=== PATIENT | female | born 1965 | race Caucasian/White ===

== ENCOUNTER 2019-05-23 13:09 | Emergency (ER) | payer MEDICAID ==
[~2019-05-23] VITALS: Ht 160 cm; Wt 84.0 kg
[2019-05-23 13:29] VITALS: BP 110/62
--- NOTE | 2019-05-23 13:44 | NUR ---
pt seen and treated at triage by Dr Keyes, nonadherent dressing and guaze wrap applied, pt ten well
== END 2019-05-23 13:46 | disposition home or self-care (01) ==
LOC: ER 13:10
DX: Z48.02 Encounter for removal of sutures (principal); Z88.0 Allergy status to penicillin
CPT/HCPCS: 99281

== ENCOUNTER 2019-06-04 09:54 | Emergency (ER) | payer MEDICAID ==
[~2019-06-04] VITALS: Ht 157.5 cm; Wt 84.0 kg
[2019-06-04 09:55] VITALS: BP 156/87
--- NOTE | 2019-06-04 10:39 | NUR ---
Patient with retained suture in left arm antecubital area. Removed with suture removal kit with no suture seen remaining in arm.
[2019-06-05] MEDS ORDERED: CLOP75TA35 PO (16:58)
[2019-06-05] MEDS ORDERED: GABA-532 PO ×2 (16:58→18:03)
[2019-06-05] MEDS ORDERED: ACET325T55 PO (16:58)
[2019-06-05] MEDS ORDERED: OXYB-58 PO (16:58)
[2019-06-05] MEDS ORDERED: RIVA20TA PO ×2 (16:58→18:03)
[2019-06-05] MEDS ORDERED: ALBU8.5H8 INH (16:58)
[2019-06-05] MEDS ORDERED: AMLO5TAB16 PO (16:58)
[2019-06-05] MEDS ORDERED: AMLO5TAB PO (18:03)
[2019-06-05] MEDS ORDERED: OXYB5TAB29 PO (18:03)
[2019-06-05] MEDS ORDERED: ALBU8HFA PO (18:03)
[2019-06-05] MEDS ORDERED: CLOP75TA33 PO (18:03)
== END 2019-06-04 11:43 | disposition home or self-care (01) ==
LOC: ER 09:54
DX: M79.602 Pain in left arm (principal); E78.00 Pure hypercholesterolemia, unspecified; I10 Essential (primary) hypertension; J45.909 Unspecified asthma, uncomplicated; G89.29 Other chronic pain; F32.9 Major depressive disorder, single episode, unspecified; F17.200 Nicotine dependence, unspecified, uncomplicated; F12.90 Cannabis use, unspecified, uncomplicated; Z86.19 Personal history of other infectious and parasitic diseases; Z86.718 Personal history of other venous thrombosis and embolism; Z98.890 Other specified postprocedural states; Z88.0 Allergy status to penicillin; Z79.01 Long term (current) use of anticoagulants; Z79.899 Other long term (current) drug therapy
CPT/HCPCS: 93971; 99284

== ENCOUNTER 2019-06-05 15:54 | Emergency (ER) | payer MEDICAID, OTHER ==
[~2019-06-05] VITALS: Ht 154.9 cm; Wt 83.8 kg
[2019-06-05 16:07] VITALS: BP 132/79
[2019-06-05] MEDS ORDERED: GABA-532 PO ×2 (16:58→18:03)
[2019-06-05] MEDS ORDERED: AMLO5TAB16 PO (16:58)
[2019-06-05] MEDS ORDERED: ACET325T55 PO (16:58)
[2019-06-05] MEDS ORDERED: OXYB-58 PO (16:58)
[2019-06-05] MEDS ORDERED: RIVA20TA PO ×2 (16:58→18:03)
[2019-06-05] MEDS ORDERED: CLOP75TA35 PO (16:58)
[2019-06-05] MEDS ORDERED: ALBU8.5H8 INH (16:58)
[2019-06-05] MEDS ORDERED: rivaroxaban 20mg tablet PO STA (17:49)
[2019-06-05] MEDS ORDERED: amLODIPine 5mg tablet PO ONE (17:50)
[2019-06-05] MEDS ORDERED: ALBU8HFA PO (18:03)
[2019-06-05] MEDS ORDERED: OXYB5TAB29 PO (18:03)
[2019-06-05] MEDS ORDERED: AMLO5TAB PO (18:03)
[2019-06-05] MEDS ORDERED: CLOP75TA33 PO (18:03)
[2019-06-05] MEDS ORDERED: clopidogrel 75mg tablet PO ONE (18:10)
[2019-06-06] MEDS ORDERED: clopidogrel 75mg tablet PO ONE (08:00)
== END 2019-06-05 18:20 | disposition home or self-care (01) ==
LOC: ER 15:54
DX: M79.602 Pain in left arm (principal); E78.00 Pure hypercholesterolemia, unspecified; G89.29 Other chronic pain; F32.9 Major depressive disorder, single episode, unspecified; F12.90 Cannabis use, unspecified, uncomplicated; F11.90 Opioid use, unspecified, uncomplicated; Z86.718 Personal history of other venous thrombosis and embolism; Z98.890 Other specified postprocedural states; Z88.0 Allergy status to penicillin; Z79.899 Other long term (current) drug therapy
CPT/HCPCS: 99284

== ENCOUNTER 2020-10-18 22:50 | Emergency (ER) | payer MEDICAID, OTHER ==
[~2020-10-18] VITALS: Ht 157.5 cm; Wt 85.0 kg
[~2020-10-18 22:50] MED LIST: ACET325T55 PO; ALBU8.5H17 INH; AMLO5TAB PO; AMLO5TAB16 PO; CLOP75TA33 PO; CLOP75TA34 PO; GABA-532 PO; OXYB-58 PO; OXYB5TAB29 PO; RIVA20TA PO
[2020-10-18 23:05] VITALS: BP 177/100
== END 2020-10-18 23:30 | disposition home or self-care (01) ==
LOC: ER 22:51
DX: F10.120 Alcohol abuse with intoxication, uncomplicated (principal); G40.909 Epilepsy, unspecified, not intractable, without status epilepticus; I10 Essential (primary) hypertension; J45.909 Unspecified asthma, uncomplicated; R47.81 Slurred speech; E78.00 Pure hypercholesterolemia, unspecified; G89.29 Other chronic pain; F17.200 Nicotine dependence, unspecified, uncomplicated; F12.90 Cannabis use, unspecified, uncomplicated; F11.90 Opioid use, unspecified, uncomplicated; Z88.0 Allergy status to penicillin; Z86.718 Personal history of other venous thrombosis and embolism; Z79.899 Other long term (current) drug therapy; Y90.9 Presence of alcohol in blood, level not specified
CPT/HCPCS: 99283

== ENCOUNTER 2021-03-22 07:40 | Emergency (ER) | payer MEDICAID ==
[~2021-03-22] VITALS: Ht 167.6 cm; Wt 77.5 kg
[2021-03-22 08:20] LABS: COLOR,URINE RED (Yellow)
[2021-03-22 08:26] LABS: UA COLLECTION TYPE CLN CATCH MIDSTREAM
[2021-03-22 08:27] LABS: CLARITY,URINE BLOODY (Clear); RBC,URINE TNTC /HPF (0-2)
[2021-03-22 08:27] LABS: BASOPHILS # (AUTO) 0.1 X10'3 (0-0.2); BASOPHILS % (AUTO) 0.5 % (0-1); EOSINOPHILS # (AUTO) 0.3 X10'3 (0-0.9); EOSINOPHILS % (AUTO) 2.4 % (0-6); HEMATOCRIT 36.8 % (35.0-45.0); HEMOGLOBIN 12.8 g/dl (12.0-16.0); LYMPHOCYTES # (AUTO) 2.3 X10'3 (1.1-4.8); LYMPHOCYTES % (AUTO) 19.7 % (21-51); MEAN CORPUSCULAR HEMOGLOBIN 31.1 PG (27.0-31.0); MEAN CORPUSCULAR HGB CONC 34.6 g/dL (33.0-36.5); MEAN CORPUSCULAR VOLUME 89.7 FL (78-98); MEAN PLATELET VOLUME 8.6 FL (7.4-10.4); MONOCYTES # (AUTO) 0.8 X10'3 (0-0.9); MONOCYTES % (AUTO) 6.9 % (2-12); NEUTROPHILS % (AUTO) 70.5 % (42-75); PLATELET COUNT 202 X10'3 (140-440); RED BLOOD COUNT 4.11 X10'6 (4.20-5.60); RED CELL DISTRIBUTION WIDTH 15.2 % (11.5-14.5); WHITE BLOOD COUNT 11.4 X10'3 (4.5-11.0)
[2021-03-22 08:29] LABS: BACTERIA,URINE 1+ /HPF (Neg); SQUAMOUS EPITHELIAL CELL,UR FEW /LPF (FEW)
[2021-03-22 08:58] LABS: ALANINE AMINOTRANSFERASE 32 U/L (12-78); ALBUMIN 3.7 G/DL (3.4-5.0); ALBUMIN/GLOBULIN RATIO 0.8 (1.1-1.5); ALKALINE PHOSPHATASE 95 IU/L (46-116); ANION GAP 13 (8-16); ASPARTATE AMINO TRANSFERASE 34 U/L (10-37); BILIRUBIN,TOTAL 0.5 MG/DL (0.1-1.0); BLOOD UREA NITROGEN 23 MG/DL (7-18); CALCIUM 8.9 MG/DL (8.5-10.1); CHLORIDE 107 MMOL/L (99-107); CREATININE 0.82 MG/DL (0.40-0.90); GLUCOSE 148 MG/DL (70-104); LIPASE 113 U/L (73-393); POTASSIUM 4.1 MMOL/L (3.5-5.1); SODIUM 141 MMOL/L (135-145); TOTAL CARBON DIOXIDE 21.4 MMOL/L (24-32); TOTAL PROTEIN 8.4 G/DL (6.4-8.2); eGFR 73 ML/MIN
[2021-03-22 11:15] VITALS: BP 128/80
[2021-03-22] MEDS ORDERED: cephalexin 250mg capsule PO ONE (11:20)
[2021-03-22] MEDS ORDERED: CEPH-585 PO ×2 (12:24→12:44)
--- NOTE | 2021-03-22 12:45 | NUR ---
Pt given and understands d/c instructions. Ambulatory with a slow gait.
== END 2021-03-22 12:45 | disposition home or self-care (01) ==
LOC: ER 07:42
DX: D68.9 Coagulation defect, unspecified (principal); N39.0 Urinary tract infection, site not specified; R10.30 Lower abdominal pain, unspecified; G40.909 Epilepsy, unspecified, not intractable, without status epilepticus; E78.00 Pure hypercholesterolemia, unspecified; I10 Essential (primary) hypertension; J45.909 Unspecified asthma, uncomplicated; F12.90 Cannabis use, unspecified, uncomplicated; F11.90 Opioid use, unspecified, uncomplicated; G89.29 Other chronic pain; Z86.718 Personal history of other venous thrombosis and embolism; Z88.0 Allergy status to penicillin; Z79.2 Long term (current) use of antibiotics; Z79.899 Other long term (current) drug therapy
CPT/HCPCS: 36415; 80053; 81001; 83690; 85025; 85610; 87088; 99283

== ENCOUNTER 2021-05-12 20:04 | Emergency (ER) | payer MEDICAID ==
[~2021-05-12] VITALS: Ht 160 cm; Wt 93.6 kg
[~2021-05-12 20:04] MED LIST changes: +CEPH-585 PO
[2021-05-12 20:55] VITALS: BP 166/99
== END 2021-05-13 01:06 | disposition left against medical advice (07) ==
LOC: ER 20:05
DX: S61.219A Laceration without foreign body of unspecified finger without damage to nail, initial encounter (principal); Z53.21 Procedure and treatment not carried out due to patient leaving prior to being seen by health care provider; X58.XXXA Exposure to other specified factors, initial encounter; Y93.89 Activity, other specified; Y92.89 Other specified places as the place of occurrence of the external cause; Y99.8 Other external cause status

== ENCOUNTER 2022-02-23 05:57 | Emergency (ER) | payer MEDICAID ==
[~2022-02-23] VITALS: Ht 167.6 cm; Wt 90.9 kg
[2022-02-23 07:00] LABS: HEMATOCRIT 39.4 % (35.0-45.0); HEMOGLOBIN 13.3 g/dl (12.0-16.0); MEAN CORPUSCULAR HEMOGLOBIN 31.5 PG (27.0-31.0); MEAN CORPUSCULAR HGB CONC 33.7 g/dL (33.0-36.5); MEAN CORPUSCULAR VOLUME 93.5 FL (78-98); PLATELET COUNT 158 X10'3 (140-440); RED BLOOD COUNT 4.21 X10'6 (4.20-5.60); RED CELL DISTRIBUTION WIDTH 18.3 % (11.5-14.5); WHITE BLOOD COUNT 6.6 X10'3 (4.5-11.0)
[2022-02-23 07:01] LABS: BASOPHILS % (AUTO) 0.8 % (0-1); EOSINOPHILS % (AUTO) 0.1 % (0-6); LYMPHOCYTES # (AUTO) 0.6 X10'3 (1.1-4.8); LYMPHOCYTES % (AUTO) 9.7 % (21-51); MEAN PLATELET VOLUME 8.9 FL (7.4-10.4); MONOCYTES # (AUTO) 0.7 X10'3 (0-0.9); MONOCYTES % (AUTO) 10 % (2-12); NEUTROPHILS # (AUTO) 5.3 X10'3 (1.8-7.7); NEUTROPHILS % (AUTO) 79.4 % (42-75)
[2022-02-23 07:13] LABS: ANION GAP 12 (8-16); BLOOD UREA NITROGEN 15 MG/DL (7-18); BUN/CREATININE RATIO 16.9 (6.6-38.0); CHLORIDE 103 MMOL/L (99-107); CREATININE 0.89 MG/DL (0.40-0.90); GLUCOSE 153 MG/DL (70-104); POTASSIUM 3.3 MMOL/L (3.5-5.1); SODIUM 137 MMOL/L (135-145); TOTAL CARBON DIOXIDE 21.9 MMOL/L (24-32); eGFR 66 ML/MIN
[2022-02-23 07:14] LABS: ALANINE AMINOTRANSFERASE 112 U/L (12-78); ALBUMIN 3.7 G/DL (3.4-5.0); ALBUMIN/GLOBULIN RATIO 0.8 (1.1-1.5); ALKALINE PHOSPHATASE 115 IU/L (46-116); ASPARTATE AMINO TRANSFERASE 146 U/L (10-37); BILIRUBIN,TOTAL 0.5 MG/DL (0.1-1.0); CALCIUM 8.7 MG/DL (8.5-10.1); TOTAL PROTEIN 8.1 G/DL (6.4-8.2)
[2022-02-23] MEDS ORDERED: normal saline 1000ml 1,000 ML IV ONE (11:50)
[2022-02-23] MEDS ORDERED: ketorolac tromethamine 15mg/ml inj. IV ONE (11:50)
[2022-02-23] MEDS ORDERED: iohexol 350MG/ML 100ml bottle IV ONE ×2 (12:10→15:13)
[2022-02-23] MEDS ORDERED: buprenorphine/naloxone 8MG-2MG SUBlingual film SL ONE (12:50)
[2022-02-23] MEDS ORDERED: albuterol 2.5 MG/3 ML nebule NEB ONE (16:15)
[2022-02-23 18:13] VITALS: BP 148/98
== END 2022-02-23 18:33 | disposition home or self-care (01) ==
LOC: ER 05:58
DX: R06.02 Shortness of breath (principal); Z20.822 Contact with and (suspected) exposure to COVID-19; R05.9 Cough, unspecified; M79.10 Myalgia, unspecified site; E78.00 Pure hypercholesterolemia, unspecified; I10 Essential (primary) hypertension; J45.909 Unspecified asthma, uncomplicated; G89.29 Other chronic pain; F31.9 Bipolar disorder, unspecified; F12.10 Cannabis abuse, uncomplicated; Z88.0 Allergy status to penicillin; Z79.899 Other long term (current) drug therapy; Z79.1 Long term (current) use of non-steroidal anti-inflammatories (NSAID)
CPT/HCPCS: 36415; 71045; 71275; 76937; 80053; 83880; 84484; 85025; 87502; 87503; 87635; 93005; 94640; 96361; 96374; 99285; C1751; C9803; J1885; J3490; J7030; Q9967; 94760

== ENCOUNTER 2025-03-04 14:39 | Outpatient (CLI) | payer MEDICAID ==
[2025-03-04 15:36] LABS: CREATININE 0.80 MG/DL (0.40-0.90); TOTAL CARBON DIOXIDE 27.8 MMOL/L (24-32); eGFR 74 ML/MIN
[2025-03-04] MEDS ORDERED: iohexol 300mg/ml 100ml inj. ONE (15:48)
--- NOTE | 2025-03-04 21:37 | RADIOLOGY REPORT ---
COMPUTERIZED TOMOGRAPHY FACE/PARANASAL SINUSES NONCONTRAST REASON FOR EXAM: CHRONIC SINUSITIS COMPARISON: None TECHNIQUE: Thin axial slices of the face/paranasal sinuses were obtained without intravenous contrast. 2D coronal and sagittal reformatted images were provided. Radiation optimization: All CT scans at this facility use at least one of these dose optimization techniques: Automated exposure control mA and/or kV adjustment per patient size (includes targeted exams where dose is matched to clinical indication) or iterative reconstruction. RADIATION DOSE: CTDI: 54 mGy DLP: 1056 mGy-cm FINDINGS: The globes appear intact. There is no abnormal thickening of the extra-ocular muscles. The optic nerves appear symmetric and within normal limits. There are numerous dental caries. There is a periapical lucency about the most posterior left maxillary molar measuring 2.3 x 2.1 cm and causing deformity of the floor of the left maxillary sinus. There is mild mucosal disease along the floor of the left maxillary sinus, likely reactive. There are several additional, smaller periapical lucencies about the remaining maxillary teeth. Bilateral ostiomeatal units are patent. The frontoethmoidal and sphenoethmoidal recesses are patent. There is trace mucosal disease in the posterior left ethmoid air cells. The visualized mastoid air cells are clear. IMPRESSION: Chronic deformity of the floor of the left maxillary sinus secondary to a large periapical lucency about the posterior left maxillary molar that may represent a chronic abscess. There are numerous additional periapical lucencies about the remaining maxillary teeth. Consultation with an oral surgeon is recommended. Mild mucosal disease along the floor of the left maxillary sinus and in the posterior left ethmoid air cells, likely reactive to the chronic oral pathology.
== END 2025-03-04 23:59 | disposition home or self-care (01) ==
LOC: RAD 14:39
PROVIDERS: ATTEND Family Medicine
DX: J32.0 Chronic maxillary sinusitis (principal)
CPT/HCPCS: 36415; 70486; 80053; Q9967